=== PATIENT | female | born 1975 | race Caucasian/White ===

== ENCOUNTER 2017-09-29 10:01 | Emergency (ER) | payer BC ==
--- NOTE | 2017-09-29 11:22 | ED Physician Documentation ---
General Adult - HISTORIAN Historian: patient - HPI Stated Complaint: abd pain Chief Complaint: General Adult Timing: still present Severity: moderate Further Comments: yes (Pt is a 42 yo female who thinks she may have a hernia in her L lower abdomen. Pt had an abd hernia repair more than 15 years ago. 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 She "felt something give," and has has intermittent pain in her lower L abdomen, especially with activities.) - ROS CONST: no problems EYES/ENT: none CVS/RESP: none GI/: abdominal pain MS/SKIN/LYMPH: none - PAST HX Past History: other (c-sec, abd hernia repair) Allergies/Adverse Reactions: Allergies Allergy/AdvReac Type Severity Reaction Status Date / Time ciprofloxacin [From Cipro] Allergy Verified 09/29/17 10:36 ciprofloxacin HCl Allergy Verified 09/29/17 10:36 [From Cipro] Home Medications: Ambulatory Orders Medication Instructions Recorded NK [NK] 09/29/17 - SOCIAL HX Smoking History: cigarettes - FAMILY HX Family History: No - VITAL SIGNS Vital Signs: Vital Signs Temp Pulse Resp BP Pulse Ox 99.1 F 101 H 16 154/81 98 09/29/17 10:10 09/29/17 10:10 09/29/17 10:10 09/29/17 10:10 09/29/17 10:10 - REVIEWED ASSESSMENTS Nursing Assessment Reviewed: Yes Vitals Reviewed: Yes Progress - Progress Progress: Abd u/s: No evidence for solid or cystic mass. No evidence for hernia. Pt reassured. ED Results Lab/Radiology - Orders Orders: ED Orders Category Date Time Status ULTRASOUND OF ABD LIMITED [US ABDOMEN LIMITED] [US] Exams 09/29/17 Taken Stat General Adult Physical Exam - PHYSICAL EXAM GENERAL APPEARANCE: mild distress NECK: normal inspection, supple RESPIRATORY: no resp distress, chest non-tender CVS: reg rate & rhythm, heart sounds normal ABDOMEN: soft, normal bowel sounds, tenderness (L lower quadrant, no hernia in evidence on exam) BACK: normal inspection, no CVA tenderness SKIN: warm/dry, normal color EXTREMITIES: non-tender, normal range of motion, no edema NEURO: oriented X3, motor nml, sensation nml Discharge Clincal Impression: lower abd stain Referrals: Nasrin Donato MD [Primary Care Provider] - Condition: Good Disposition: 01 HOME, SELF-CARE Decision to Admit: NO Decision Time: 11:46
[2017-09-29 12:05] VITALS: BP 146/86
--- NOTE | 2017-09-29 14:55 | Diagnostic Imaging Report ---
CARMEL ROSADO [facility] [id number] [facility] [address] [address] Report Submission Date: Sep 29, 2017 11:17:05 AM OSTEOPATHY DOCTOR Patient Study Name: DIEGO COX Date: Sep 29, 2017 11:01:20 AM OSTEOPATHY DOCTOR Modality Type: US Gender: F Description: US ABD LIMITED : 77 Institution: [facility] Physician: CARMEL ROSADO Examination: Ultrasound abdomen limited. History: Abdominal sensation. Comparison exams: None provided Findings: Sonographic evaluation of the abdomen. No evidence for soft tissue mass or cystic structure. No evidence for bowel irregularity. Impression: No evidence for solid or cystic mass. No evidence for hernia. Electronically signed on Sep 29, 2017 11:17:05 AM OSTEOPATHY DOCTOR by: Antonio SAGE
== END 2017-09-29 11:58 | disposition home or self-care (01) ==
LOC: ED 10:01
DX: R10.30 Lower abdominal pain, unspecified (principal)
CPT/HCPCS: 76705; 99282

== ENCOUNTER 2019-04-22 16:06 | Outpatient (CLI) | payer BC ==
[2019-04-22 16:42] LABS: BASOPHILS % 0.5 % (0.0-1.5)
[2019-04-22 18:11] LABS: MAGNESIUM 1.8 mIU/l (1.6-2.3); eGFR (Non-African) > 60
== END 2019-04-22 16:08 ==
LOC: LAB 16:06
PROVIDERS: ATTEND Nurse Practitioner Family
DX: M62.838 Other muscle spasm (principal); R53.83 Other fatigue
CPT/HCPCS: 36415; 80053; 83735; 85025